=== PATIENT | male | born 1995 | race African-American/Black ===

== ENCOUNTER 2018-07-14 21:58 | Emergency (ER) | payer OTHER ==
[~2018-07-14] VITALS: Ht 175.3 cm; Wt 73.0 kg
[2018-07-14] MEDS ORDERED: ONDANSETRON HCL 4MG/2ML INJ IV STA (22:33)
[2018-07-14] MEDS ORDERED: SODIUM CHLORIDE 0.9% 1,000 ML IV ONE (22:33)
[2018-07-14] MEDS ORDERED: IBUPROFEN 600MG TABLET PO ONE (22:45)
[2018-07-14 23:53] LABS: BASOPHILS % 0.5 % (0.0-2.0); EOSINOPHILS % 1.4 % (0.0-5.0); HEMATOCRIT. 40.1 % (42.0-52.0); HEMOGLOBIN. 13.5 g/dL (14.0-18.0); LYMPHOCYTES % 20.6 % (20.0-50.0); MEAN CORPUSCULAR HEMOGLOBIN 31.4 pg (28.0-32.0); MEAN CORPUSCULAR VOLUME 92.9 fL (80.0-94.0); MEAN PLATELET VOLUME 9.4 fl (7.4-10.4); MONOCYTES % 6.2 % (2.0-8.0); NEUTROPHILS % 71.3 % (40.0-76.0); PLATELET 209 x1000/uL (130-400); RED BLOOD CELL COUNT 4.31 mill/uL (4.7-6.1); RED CELL DISTRIBUTION WIDTH 13.4 % (11.6-14.6)
[2018-07-14 23:56] LABS: CHLORIDE 105 mEq/L (98-107)
[2018-07-15 00:46] VITALS: BP 110/74
== END 2018-07-15 00:49 | disposition home or self-care (01) ==
LOC: ER 21:58
DX: R55 Syncope and collapse (principal); R51 Headache
CPT/HCPCS: 36415; 80048; 85025; 93005; 96361; 96374; 99285; J2405; J7030